=== PATIENT | female | born 1980 | race Hispanic/Latino ===

== ENCOUNTER 2023-02-01 12:28 | Emergency (ER) | payer SELFPAY ==
[2023-02-01] VITALS (9 sets, daily range): BP systolic 108–122; BP diastolic 62–78
[~2023-02-01] VITALS: Ht 157.5 cm; Wt 72.5 kg
[~2023-02-01 12:28] MED LIST: COUMADIN3 MG PO; LEVOTHYROXIN50 MCG PO; MINOCYCLINE100 MG PO; PRE-NATAL PO; PROCARDIA10 MG PO; WARFARIN5 MG PO; WARFARIN7.5 MG PO
[2023-02-01 13:47] LABS: BASO% 0.9 % (0-3); EOS% 2.9 % (0-8); HEMATOCRIT 36.3 % (37.0-47.0); HEMOGLOBIN 11.8 g/dl (12.0-16.0); IMMATURE GRANULOCYTES 0.1 % (0.0-5.0); LYMPH% 23.7 % (15-41); MEAN CELL VOLUME 87.5 fL CALC (80.0-100.0); MEAN CORPUSCULAR HGB 28.4 pG CALC (26.0-32.0); MEAN CORPUSCULAR HGB CONC 32.5 g/dL CAL (32.0-36.0); MONO% 6.1 % (2-13); NEUT# 5.26 thou/uL (2.00-7.15); NEUT% 66.3 % (42-76); RED BLOOD COUNT 4.15 mill/uL (4.20-5.60); RED CELL DISTRI WIDTH 12.9 % (11.5-15.5)
[2023-02-01 14:00] LABS: ANION GAP 11 (6-22 (CALC)); BILIRUBIN, TOTAL 0.3 mg/dL (0.02-1.3); BUN 11 mg/dL (7-17); BUN/CREATININE RATIO 14 (12-20 (CALC)); CARBON DIOXIDE 27 mmol/l (22-30); CHLORIDE 103 mmol/l (95-108); CREATININE 0.8 mg/dL (0.5-1.0); GFR FOR AFR.AMER. > 60 ML/MIN (>=60 (CALC)); GFR OTHER RACES > 60 ML/MIN (>=60 (CALC)); POTASSIUM 3.9 mmol/l (3.5-5.1); SGOT/AST 27 u/l (14-36); SODIUM 137 mmol/l (137-146); TOTAL PROTEIN 7.2 g/dL (6.3-8.2)
[2023-02-01 14:01] LABS: ALKALINE PHOSPHATASE 60 u/l (38-126)
[2023-02-01] MEDS ORDERED: PREDNISONE20 MG PO (15:36)
[2023-02-01] MEDS ORDERED: NAPROXEN500 MG PO (15:36)
== END 2023-02-01 15:51 | disposition home or self-care (01) | DRG 313 ==
LOC: ED 12:28
PROVIDERS: Nurse Practitioner
DX: R07.89 Other chest pain (principal); Z86.718 Personal history of other venous thrombosis and embolism

== ENCOUNTER 2024-09-22 09:34 | Day surgery (SDC) | payer SELFPAY ==
[~2024-09-22] VITALS: Ht 157.5 cm; Wt 75.8 kg
[~2024-09-22 09:34] MED LIST changes: +NAPROXEN500 MG PO; +PREDNISONE20 MG PO
[2024-09-22] MEDS ORDERED: LACTATED RINGER'S 1,000 ML IV ONE ×2 (10:06→13:34)
[2024-09-22] MEDS ORDERED: ceFAZolin Sodium 2 GM/VIAL SDV ONE (10:37)
[2024-09-22] MEDS ORDERED: SODIUM CHLORIDE 0.9% 100 ML IV ONE (10:38)
[2024-09-22] MEDS ORDERED: LIDOcaine HCl 1% (Local Anesth.) 20 ML VIAL ONE (10:59)
[2024-09-22] MEDS ORDERED: STERILE WATER FOR IRRIGATION 1,000 ML BTL IR ONE (10:59)
[2024-09-22] MEDS ORDERED: SODIUM CHLORIDE 1,000 ML BTL IR ONE (10:59)
[2024-09-22] MEDS ORDERED: PERCOCET 5/325M1 TAB PO (12:38)
[2024-09-22] MEDS ORDERED: ACETAMINOPHEN 100 ML IV ONE (13:06)
[2024-09-22] MEDS ORDERED: ONDANSETRON HCl 4 MG/2 ML SDV ONE (14:08)
[2024-09-22 14:52] VITALS: BP 131/84
[2024-09-22] MEDS ORDERED: SUGAMMADEX SODIUM 200 MG/2 ML SDV IV ONE (20:52)
[2024-09-22] MEDS ORDERED: DEXAMETHASONE SODIUM PHOSPHATE PF 10 MG/ML SDV IV ONE (20:52)
[2024-09-22] MEDS ORDERED: ONDANSETRON HCl 4 MG/2 ML SDV IV ONE (20:52)
[2024-09-22] MEDS ORDERED: PROPOFOL 200 MG/20 ML VIAL IV ONE (20:52)
[2024-09-22] MEDS ORDERED: KETOROLAC TROMETHAMINE 30 MG/ML SDV IV ONE (20:52)
[2024-09-22] MEDS ORDERED: ROCURONIUM BROMIDE 10 MG/ML 5ML VIAL IV ONE (20:52)
[2024-09-22] MEDS ORDERED: LIDOCAINE HCL 2% 2ML SDV IV ONE (20:52)
== END 2024-09-22 14:38 | disposition home or self-care (01) | DRG 419 ==
LOC: ORM 09:34
PROVIDERS: ATTEND Surgery
PROC: 0FT44ZZ Resection of Gallbladder, Percutaneous Endoscopic Approach (ICD-10-PCS; principal; 2024-09-22)
DX: K80.10 Calculus of gallbladder with chronic cholecystitis without obstruction (principal); Z86.718 Personal history of other venous thrombosis and embolism
CPT/HCPCS: J0131; J0690; J1100